=== PATIENT | female | born 1985 | race Caucasian/White ===

== ENCOUNTER 2018-02-25 22:25 | Emergency (ER) | payer MEDICAID ==
[2018-02-25] MEDS ORDERED: ONDANSETRON 4 MG/2 ML VIAL IVP ONE (23:03)
[2018-02-25] MEDS ORDERED: NS 1,000 ML IV ONE ×2 (23:03→23:15)
[2018-02-25] MEDS ORDERED: HYDROmorphONE/DILAUDID 2 MG/ML INJ IVP ONE (23:15)
--- NOTE | 2018-02-25 23:20 | EDPHY ---
H & P Stated Complaint: abd pain with syncope episode Source: Patient Exam Limitations: No limitations - Personal History LMP (Females 10-55): 15-21 Days Ago Current Tetanus/Diphtheria Vaccine: Yes Current Tetanus Diphtheria and Acellular Pertussis (TDAP): Yes - Medical/Surgical History Hx Asthma: No Hx Chronic Respiratory Disease: No Hx Diabetes: No Hx Cardiac Disease: No Hx Renal Disease: No Hx Cirrhosis: No Hx Alcoholism: No Hx HIV/AIDS: No Hx Splenectomy or Spleen Trauma: No Other PMH: denies - Family History Significant Family History: No pertinent family hx - Social History Smoking Status: Never smoked Alcohol Use: None Drug Use: None Time Seen by Provider: 02/25/18 23:11 HPI/ROS: CHIEF COMPLAINT: Suprapubic pain HISTORY OF PRESENT ILLNESS: Patient is a 33-year-old female with no significant past medical history who comes to the emergency department complaining of suprapubic pain for the last day and half. She states that she has pain similar to this when she has painful menses but her last period was 3 weeks ago and she is not currently bleeding. She denies risk of . No discharge. No urinary symptoms. No back or flank pain. No history of abdominal surgery. She is concerned about endometriosis or ovarian cyst. REVIEW OF SYSTEMS: Constitutional: denies: chills, fever, recent illness, recent injury EENTM: denies: blurred vision, double vision, nose congestion Respiratory: denies: cough, shortness of breath Cardiac: denies: chest pain, irregular heart rate, lightheadedness, palpitations Gastrointestinal/Abdominal: denies: abdominal pain, diarrhea, nausea, vomiting, blood streaked stools Genitourinary: See HPI denies: dysuria, frequency, hematuria, pain Musculoskeletal: denies: joint pain, muscle pain Skin: denies: lesions, rash, jaundice, bruising Neurological: denies: headache, numbness, paresthesia, tingling, dizziness, weakness Hematologic/Lymphatic: denies: blood clots, easy bleeding, easy bruising Immunologic/allergic: denies: HIV/AIDS, transplant EXAM: GENERAL: Well-appearing, well-nourished and in no acute distress. HEAD: Atraumatic, normocephalic. EYES: Pupils equal round and reactive to light, extraocular movements intact, sclera anicteric, conjunctiva are normal. ENT: TMs normal, nares patent, oropharynx clear without exudates. Moist mucous membranes. NECK: Normal range of motion, supple without lymphadenopathy or JVD. LUNGS: Breath sounds clear to auscultation bilaterally and equal. No wheezes rales or rhonchi. HEART: Regular rate and rhythm without murmurs, rubs or gallops. ABDOMEN: Suprapubic tenderness, slight right lower quadrant tenderness. normoactive bowel sounds. No guarding, no rebound. No masses appreciated. : Pelvic exam, no cervical motion tenderness, no unusual discharge. No adnexal fullness or tenderness. BACK: No CVA tenderness, no spinal tenderness, step-offs or deformities EXTREMITIES: Normal range of motion, no pitting or edema. No clubbing or cyanosis. NEUROLOGICAL: Cranial nerves II through XII grossly intact. Normal speech, normal gait. 5/5 strength, normal movement in all extremities, normal sensation PSYCH: Normal mood, normal affect. SKIN: Warm, dry, normal turgor, no visible rashes or lesions. (Dorian Duran) Constitutional: Initial Vital Signs Temperature (C) 36.5 C 02/25/18 22:33 Heart Rate 96 02/25/18 22:33 Respiratory Rate 18 02/25/18 22:33 Blood Pressure 98/72 L 02/25/18 22:33 O2 Sat (%) 100 02/25/18 22:33 O2 Delivery Mode Room Air Allergies/Adverse Reactions: No Known Allergies Allergy (Verified 02/25/18 22:36) Home Medications: Medication Instructions Recorded NK [No Known Home Meds] 02/25/18 Medical Decision Making ED Course/Re-evaluation: 12:56 a.m.- Patient's ultrasound results returned and did demonstrate a right-sided ruptured ovarian cyst. Her appendix was not able to be visualized. I reassessed the patient, she is feeling better, she does have mild right-sided lower abdominal tenderness without any rebound or guarding. Her vital signs are stable. I suspect her pain is from this ovarian cyst. I doubt appendicitis at this time. The patient would like an additional dose of pain medication which I have ordered for her. Then I think she is suitable for discharge with follow up with Dr. Mayra Silverman who is her family medicine doctor. I explained that she may need to have repeat ultrasound. (Jen Carvajal) 12:15 a.m. the patient's lab work is thus far reassuring. Her pelvic exam was unremarkable. Urinalysis is an ultrasound pending. Care transferred to Dr. Carvajal (Dorian Duran) Differential Diagnosis: Partial list of the Differential diagnosis considered include but were not limited to; endometriosis, urinary tract infection, ovarian cyst and although unlikely based on the history and physical exam, I also considered , appendicitis, kidney stone. (Dorian Duran) - Data Points Laboratory Results: Laboratory Results 02/25/18 23:00 02/25/18 23:00 Medications Given: Discontinued Medications Hydrocodone Bitart/Acetaminophen ([place] 5/325mg Prepack#6) 1 btl TAKEHOME EDNOW ONE Stop: 02/26/18 00:44 Last Admin: 02/26/18 00:55 Dose: 1 btl Hydromorphone HCl (Dilaudid) 0.5 mg IVP EDNOW ONE Stop: 02/25/18 23:16 Last Admin: 02/25/18 23:23 Dose: 0.5 mg Hydromorphone HCl (Dilaudid) 0.5 mg IVP EDNOW ONE Stop: 02/26/18 00:44 Last Admin: 02/26/18 00:57 Dose: 0.5 mg Sodium Chloride (Ns) 1,000 mls @ 0 mls/hr IV ONCE ONE PRN Reason: Wide Open Stop: 02/25/18 23:04 Last Admin: 02/25/18 23:11 Dose: 1,000 mls Sodium Chloride (Ns) 1,000 mls @ 0 mls/hr IV EDNOW ONE; Wide Open PRN Reason: Protocol Stop: 02/25/18 23:16 Last Admin: 02/25/18 23:26 Dose: Not Given Ketorolac Tromethamine (Toradol) 15 mg IVP EDNOW ONE Stop: 02/26/18 00:44 Last Admin: 02/26/18 00:55 Dose: 15 mg Ondansetron HCl (Zofran) 4 mg IVP EDNOW ONE Stop: 02/25/18 23:04 Last Admin: 02/25/18 23:11 Dose: 4 mg Departure - Departure Disposition: Home, Routine, Self-Care Clinical Impression: Ruptured cyst of ovary Condition: Good Instructions: Hydrocodone/Acetaminophen (By mouth), Ruptured Ovarian Cyst (ED) Additional Instructions: I recommend you take ibuprofen 400 mg every 6 hr as needed for pain. You can add Tylenol 650 mg every 6 hr to this. These medicines do not interact. I would like for you to follow up with Dr. Silverman in the next few days unless your pain is completely improved. You should return to the emergency department if your worse in any way. Referrals: Mayra Silverman MD [Medical Doctor] - As per Instructions
[2018-02-25 23:23] LABS: PLATELET COUNT 248 10^3/uL (150-400)
[2018-02-26] MEDS ORDERED: HYDROmorphONE/DILAUDID 2 MG/ML INJ IVP ONE (00:43)
[2018-02-26] MEDS ORDERED: HYDROCOD/APAP 5/325 PREPACK#6 BTL TAKEHOME ONE (00:43)
[2018-02-26] MEDS ORDERED: KETOROLAC 15 MG/1 ML SDV IVP ONE (00:43)
[2018-02-26 01:42] VITALS: BP 100/67
[2018-02-26 12:28] LABS: GC AMPLIFICATION GENPROBE NEGATIVE (NEGATIVE)
== END 2018-02-26 01:42 | disposition home or self-care (01) ==
DX: N83.201 Unspecified ovarian cyst, right side (principal); E86.9 Volume depletion, unspecified
CPT/HCPCS: 96374; J1170; J1885; J2405